=== PATIENT | male | born 1975 | race Caucasian/White ===

== ENCOUNTER 2025-09-11 19:19 | Emergency (ER) | payer OTHER, SELFPAY ==
--- OUTSIDE RECORDS SUMMARY | 2025-09-11 19:21 | XMS_ITS | Encounter Summary ---
Author Organization [facility] Address [address] [place] [address]. [place] [address] Care Team Providers Care Environmental Compliance Technician Name Role Phone No Ref-Primary, Physician Primary Care Provider Rafa Chester DO Unavailable [phone] Khushboo Austin APRN EXECUTIVE PRODUCER PROMOS Unavailable + Rafa Chester DO Unavailable [phone] Khushboo Austin APRN EXECUTIVE PRODUCER PROMOS Unavailable + Encounter Details Date Type Department Care Team (Late st Contact Info) Description 10/06/2023 MyC Medical Advice [facility] [id number] [place] [id number] Jessie Monae, DIRECTOR OF STRATEGIC COMMUNICATIONS Social History Tobacco Use Types Packs/Day Years Used Date Smoking Tobacco: Former Cigarettes Q uit: 11/30/2022 Smokeless Tobacco: Current Chew Alcohol Use Standard Drinks/Week Comments Yes 0 (1 standard drink = 0.6 oz pur e alcohol) a little it Social Connection and Isolation Panel [NHANES] A nswer Date Recorded In a typical week, how many times do you talk on the phone with family, friends, or neighbors? Three times a week 04/16/2022 How often do you get togethe r with friends or relatives? Once a week 04/16/2022 How often do you attend [facility] or jehovah's witness services? Never 04/16/2022 Do you belong to any clubs o r organizations such as latter-day groups, unions, fraternal or athletic groups, or school groups? No 04/16/2022 Attends Club or Organization Meetings Not on ha e 04/16/2022 Are you , , di vorced, , never , or living with a partner? 04/16/2022 AUDIT-C Answer Date Recorded Q1: How often do you have a drink containing alc ohol? Patient declined 04/16/2022 Q2: How many drinks containi ng alcohol do you have on a typical day when you are drinking? Patient declined 04/16/2022 Q3: How often do you have si x or more drinks on one occasion? Patient declined 04/16/2022 Overall Financial Resource Strain (CARDIA) Answe r Date Recorded How hard is it for you to pa y for the very basics like food, housing, medical care, and heating? Patient declined 04/16/2022 PHQ-2 Answer Date Recorded PHQ-2 Score 0 02/11/2023 [facility] - Occupational Stress Questionnaire Answer Date Recorded Do you feel stress - tense, restless, nervous, or anxious, or unable to sleep at night because your mind is troubled all the time - these days? Only a little 04/16/2022 Exercise Vital Sign Answer Date Recorde d On average, how many days pe r week do you engage in moderate to strenuous exercise (like a brisk walk)? 7 days 04/16/2022 On average, how many minutes do you engage in exercise at this level? 150+ min 04/16/2022 Hunger Vital Sign Answer Date Recorded Within the past 12 months, y ou worried that your food would run out before you got the money to buy more. Never true 04/16/20 Within the past 12 months, t he food you bought just didn't last and you didn't have money to get more. Never true 04/16/2022 PRAPARE - Transportation Answer Date Re corded In the past 12 months, has l ack of transportation kept you from medical appointments or from getting medications? No 03/24 In the past 12 months, has l ack of transportation kept you from meetings, work, or from getting things needed for daily living? No 04/16/2022 Housing Stability Vital Sign Answer Denis e Recorded In the last 12 months, was t here a time when you were not able to pay the mortgage or rent on time? Patient refused 04/16/20 In the last 12 months, how many places have you lived? 1 04/16/2022 In the last 12 months, was t here a time when you did not have a steady place to sleep or slept in a half-way (including now)? No 04/16/2022 Adolescent Education Answer Date Record ed Getting School Help Needed Not on file 08/23 Sex and Gender Information Value Date Recorded Sex Assigned at Male 01/19/2023 10:27 AM UNDERGROUND ROOF BOLTER Legal Sex Male 3:27 AM UNDERGROUND ROOF BOLTER Gender Identity Male 01/19/2023 10:27 AM UNDERGROUND ROOF BOLTER Sexual Orientation Straight 01/19/2023 10 :27 AM UNDERGROUND ROOF BOLTER documented as of this encounter Plan of Treatment Not on file documented as of this encounter Visit Diagnoses Not on filedocumented in this encounter Care Teams Environmental Compliance Technician Relationship Specialty Start Date End Date No Ref-Primary, Physician PCP - General 04/16/22 [place] [id number] [place] [address] Assigned PCP 04/26/22 10/23/23 Khushboo Austin APRN EXECUTIVE PRODUCER PROMOS [address] [place] [id number] Assigned PCP 10/24/23 08/14/24 [place] [address] [place] [address] Assigned PCP 08/15/24 05/14/25 Khushboo Austin APRN EXECUTIVE PRODUCER PROMOS [address] [place] [id number] Assigned PCP 05/15/25 documented as of this encounter
--- OUTSIDE RECORDS SUMMARY | 2025-09-11 19:21 | XMS_ITS | Clinical Summary ---
Author Organization [facility] Address [address] [place] [address]. [place] [address] Care Team Providers Care Advanced Practice Nurse Psychotherapist Name Role Phone No Ref-Primary, Physician Primary Care Provider Khushboo Austin INSTRUMENT REPAIR SUPERVISOR CROP AND SOIL SCIENTIST Unavailable + Allergies No known active allergies Medications VITAMIN C 500 MG PO TABS 1 TABLET DAILY Active ADVIL 200 MG PO CAPS 1 CAPSULE EVERY 4 TO 6 HOURS NEEDED Active MULTI-VITAMIN PO None Entered Active CALCIUM 500 PO None Entered Ac tive glucosamine 500 MG CAPS Active Active Problems Problem Noted Date Diagnosed Date CARDIOVASCULAR SCREENING; LDL GOAL LESS THAN 160 09/22/2010 Resolved Problems Problem Noted Date Diagnosed Date Resolved Date MENTAL HEALTH 01/15/2015 02/11/2023 Immunizations Immunization Administration Dates Next Due TDAP Vaccine (Adacel) 05/08/2009 Family History Medical History Relation Comments Dementia Father Cancer Mother ovarian cancer Relation Status Comments Father Alive Maternal Grandfather Maternal Grandmother Mother Alive Paternal Grandfather Paternal Grandmother Social History Tobacco Use Types Packs/Day Years Used Date Smoking Tobacco: Former Cigarettes Q uit: 11/30/2022 Smokeless Tobacco: Current Chew Tobacco Cessation:Ready to Q uit: Not Asked; Counseling Given: Not Answered Alcohol Use Standard Drinks/Week Comments Yes 0 [...] week 04/16/2022 How often do you attend chur or voodoo services? Never 04/16/2022 Do you belong to any clubs o r organizations such as mandaen groups, unions, fraternal or athletic groups, or [...] Answer Date Recorded PHQ-2 Score 0 02/11/2023 [facility] - Occupational Stress Questionnaire Answer Date Recorded [...] money to buy more. Never true 04/16/20 22 Within the past 12 months, t he [...] place to sleep or slept in a correction (including now)? No 04/16/2022 Adolescent Education Answer Date Record ed Getting School Help Needed Not on file 08/23 Sex and Gender Information Value Date Recorded Sex Assigned at Male 01/19/2023 10:27 AM METAL CONTROL WORKER Legal Sex Male 3:27 AM METAL CONTROL WORKER Gender Identity Male 01/19/2023 10:27 AM METAL CONTROL WORKER Sexual Orientation Straight 01/19/2023 10 :27 AM METAL CONTROL WORKER Last Filed Vital Signs Vital Sign Reading Time Taken Comments Blood Pressure 124/70 02/11/2023 11:19 AM CDT Pulse 52 02/11/2023 11:05 AM CDT Temperature 36.6 C (97.8 F) 02/11/2023 11:05 AM CDT Respiratory Rate 16 02/11/2023 11:05 AM CDT Oxygen Saturation 97% 02/11/2023 11:05 AM CDT Inhaled Oxygen Concentration - - Weight 82.6 kg (182 lb) 02/11/2023 11:05 AM CDT Height 177.2 cm (5' 9.75) 02/11/2023 11:05 AM C DT Body Mass Index 26.3 02/11/2023 11:05 AM CDT Plan of Treatment Health Maintenance Due Date Last Done Comments CT COLONOGRAPHY 1977 FIT 1977 FLEX SIG 1977 sDNA (Cologuard) 1977 COLONOSCOPY 1987 COLORECTAL CANCER SCREENING 1987 HEPATITIS B VACCINE (1 of 3 - 19+ 3-dose series) 1996 ANNUAL REVIEW OF HM ORDERS 04/16/2023 04/16/2022 YEARLY PREVENTIVE VISIT 04/16/2023 04/16/2022 PHQ-2 (once per calendar year) 2024 02/11/2023, 04/16/2022 INFLUENZA VACCINE (#1) 2025 DIABETES SCREENING 02/11/2026 02/11/2023, 04/16/2022, 01/14/2015 ZOSTER VACCINE (1 of 2) 2027 LIPID 04/16/2027 04/16/2022 ADVANCE CARE PLANNING 04/21/2027 04/21/2022 DTAP/TDAP/TD VACCINE Discontinued 05/08/2009 COVID-19 VACCINE Discontinued HEPATITIS C SCREENING Discontinued HIV SCREENING Discontinued HPV VACCINE (No Doses Required) Completed MENINGITIS VACCINE Aged Out No longer eligible based on patient's age to complete this topic PNEUMOCOCCAL VACCINE: PEDIATRICS (0 to 5 YEARS) AND AT-RISK PATIENTS (6 to 49 YEARS) Discontinued Procedures Procedure Name Priority Date/Time Associated Diagnosis Comments COMPREHENSIVE METABOLIC PANEL Routine 02/11/2023 12:07 PM CDT Rheumatoid arthritis involving multiple sites with positive rheumatoid factor (H) Multiple joint pain LIPID REFLEX TO DIRECT LDL PANEL Routine 04/16/2022 5:30 PM CDT Screening for hyperlipidemia from Last 3 Months or Most Recently Relevant to Health Maintenance Results * (ABNORMAL) Comprehensive metabolic panel (BMP + Alb, Alk Phos, ALT, AST, Total. Bili, TP) (02/11/2023 12:07 PM CDT) Sodium 140 136 - 145 mmol/L 02/11/2023 8:52 PM CDT [facility] Potassium 4.8 3.4 - 5.3 mmol/L 02/11/2023 8:52 PM CDT [facility] Chloride 100 98 - 107 mmol/L 02/11/2023 8:52 PM CDT [facility] Carbon Dioxide (CO2) 24 22 - 29 mmol/L 02/11/2023 8:52 PM CDT [facility] Anion Gap 16(H) 7 - 15 mmol/L 02/11/2023 8:52 PM CDT [facility] Urea Nitrogen 20.8(H) 6.0 - 20.0 mg/dL 02/11/2023 8:52 PM CDT [facility] Creatinine 0.89 0.67 - 1.17 mg/dL 02/11/2023 8:52 PM CDT [facility] Calcium 10.0 8.6 - 10.0 mg/dL 02/11/2023 8:52 PM CDT [facility] Glucose 92 70 - 99 mg/dL 02/11/2023 8:52 PM CDT [facility] Alkaline Phosphatase 113 40 - 129 U/L 02/11/2023 8:52 PM CDT [facility] AST 50 10 - 50 U/L 02/11/2023 8:52 PM CDT [facility] ALT 71(H) 10 - 50 U/L 02/11/2023 8:52 PM CDT [facility] Protein Total 7.9 6.4 - 8.3 g/dL 02/11/2023 8:52 PM CDT [facility] Albumin 4.9 3.5 - 5.2 g/dL 02/11/2023 8:52 PM CDT [facility] Bilirubin Total 0.5 <=1.2 mg/dL 02/11/2023 8:52 PM CDT [facility] GFR Estimate >90 >60 mL/min/1.7 3m2 02/11/2023 8:52 PM CDT [facility] Comment:eGFR calculated 2020 CKD-EPI equation. Blood STRUCTURE OF RIGHT UPPER LIMB / Unknown Venipuncture / Unknown 02/11/2023 12:07 PM CDT 02/11/2023 12:08 PM CDT Khushboo Austin APRN CROP AND SOIL SCIENTIST LAB - BLOOD ORDERA BLES Final Result [facility] [address] [facility], [address] [place] [address], [facility] [phone] * (ABNORMAL) Lipid panel reflex to direct LDL Non-fasting (04/16/2022 5:30 PM CDT) Cholesterol 247(H) <200 mg/dL 04/17/2022 3:41 PM CDT [facility] Triglycerides 202(H) <150 mg/dL 04/17/2022 3:41 PM CDT [facility] Direct Measure HDL 64 >=40 mg/dL 04/17/2022 3:41 PM CDT [facility] LDL Cholesterol Calculated 143(H) <=100 mg/dL 04/17/2022 3:41 PM CDT [facility] Non HDL Cholesterol 183(H) <130 mg/dL 04/17/2022 3:41 PM CDT [facility] Patient Fasting > 8hrs? Unknown 04/17/2022 3:41 PM CDT [facility] Blood VENOUS BLOOD / Unknown Venipuncture / Unknown 04/16/2022 5:30 PM CDT 04/16/2022 5:30 PM CDT Narrative [facility] - 04/17/2022 3:41 PM CDT Cholesterol Desirable: <200 mg/dL Triglycerides Normal: Less than 150 mg/dL Borderline High: 150-199 mg/dL High: 200-499 mg/dL Very High: Greater than or equal to 500 mg/dL Direct Measure HDL Female: Greater than or equal to 50 mg/dL Male: Greater than or equal to 40 mg/dL LDL Cholesterol Desirable: <100mg/dL Above Desirable: 100-129 mg/dL Borderline High: 130-159 mg/dL High: 160-189 mg/dL Very High: >= 190 mg/dL Non HDL Cholesterol Desirable: 130 mg/dL Above Desirable: 130-159 mg/dL Borderline High: 160-189 mg/dL High: 190-219 mg/dL Very High: Greater than or equal to 220 mg/dL Rafa Chester DO LAB - BLOOD ORDERABLES Final Re sult [facility] [address] Lab (no room number, 1st floor of clinic) [place] [address], [facility] [phone] from Last 3 Months or Most Recently Relevant to Health Maintenance Insurance [place] [facility] IN[employer]ILY [employer]ANS WITH [employer] Advance Directives For more information, please contact: [phone] * Full Code (Latest Code Status on File) Date Activated Date Inactivated Comments 01/15/2015 5:15 PM 01/16/2015 1:29 PM Care Teams Advanced Practice Nurse Psychotherapist Relationship Specialty Start Date End Date No Ref-Primary, Physician PCP - General 04/16/22 Khushboo Austin APRN CROP AND SOIL SCIENTIST [address] [place] [id number] Assigned PCP 05/15/25
[2025-09-11 19:28] VITALS: BP 170/110; PULSE 59; RESP 16; TEMP 36.3; O2SAT 99; BMI 23.7
--- NOTE | 2025-09-11 19:45 | CRLHL7_ITS ---
For Patients: As a result of the Cures Act, medical imaging exams and procedure reports are released immediately into your electronic medical record. You may view this report before your referring provider. If you have questions, please contact your health care provider. Indication: Foreign body check after multiple cat bite Technique: Left hand 3 views. Comparison: None. Findings: Bones: Alignment is normal. No fractures or bone lesions. Joint spaces: Unremarkable. Soft tissues: No significant soft tissue swelling or radiopaque foreign body. Impression: No acute fracture or radiopaque foreign body. Dictated by Sergey Smith MD @ 09/11/2025 8:11:52 PM (Electronically Signed)
--- NOTE | 2025-09-11 19:45 | ED_ITS ---
HPI - Wound/Laceration General Date Seen: 09/11/25 Chief Complaint: Laceration/Wound Stated Complaint: Cat scratch L arm Time Seen by Provider: 09/11/25 19:45 Source: patient, family and RN notes reviewed Mode of arrival: ambulatory Limitations: no limitations History of Present Illness HPI narrative: Duane is a very pleasant 50-year-old gentleman unknown tetanus who tonight had a wild cat scratch him and bite him on both hands. The him notes that the cat has been around before tried to capture him and this happen. He sustained lacerations to both hands from scratches it is fairly certain that the puncture wounds on the left hand are from a bite. The cat did run off. He does expect it will be back. He is able to move his wrist and fingers. Related Data Home Medications ?Medication ?Instructions ?Recorded ?Confirmed No Known Home Medications 09/11/2508/24 Allergies Allergy/AdvReac Type Severity Reaction Status Date / Time No Known Drug Allergies Allergy Verified 09/11/25 20:12 Review of Systems Status of ROS: Reports: 6 or more systems reviewed and unremarkable except as noted in History and below [facility] Social History Smoking Status: Former smoker Do you use any of these nicotine containing products: Other Second hand tobacco smoke exposure: No How often do you have a drink containing alcohol: monthly or less How many standard drinks containing alcohol do you have on a typical day: 1 or 2 How often do you have six or more drinks on one occasion: Never AUDIT-C Alcohol total score: 1 Non-prescribed substance use: denies use service: No Exam Narrative: Exam Narrative: Numerous scratches and puncture wounds on both hands and wrists. Left hand volar surface puncture wound over the right lateral forearm just above the radial artery pulse point. Mild surrounding erythema. No hematoma. 2 cm laceration at the base of the right hand medial aspect. This is measuring approximately 2 cm. Compromising epidermis and dermis. On his forearm he has a 7 mm laceration through the epidermis dermis but not compromising subcutaneous tissue on the distal forearm. Both of the superficial as well. On the dorsal surface he has a 7 mm laceration across the 3rd 4th and 5th MCPs. Across the 4th MCP it does open up into some subcutaneous tissue. For probably 1 cm. Wound closes nicely when hand is not flex. Right hand there is a 3 mm laceration across the lateral aspect of the 2nd phalanx. There is a 3 cm laceration across the dorsal phalanx On the volar surface there is a 4 cm laceration across the distal forearm. also has a additional lacerations medial to that. One measuring 7 mm and the other 3.5 mm. No respiratory distress. Const: Vital Signs, click to edit/add: Vital Signs - 24 hr 09/11/25 19:28 Temperature 97.3 F L Pulse Rate [Right Pulse Oximeter] 59 L Respiratory Rate 16 Blood Pressure [Le ft Upper Arm] 170/110 H Pulse Oximetry 99 Oxygen Delivery Me thod Room Air Documenting provider has reviewed patient's vital signs: yes Course Course ED Course: Will check on patient's tetanus status. Will speak to state epidemiology regarding need for rabies vaccination Plan on irrigation wounds and not just soaking. Will plan on bilateral hand and wrist x-ray to ensure there is no evidence of retained foreign body i.e. tooth. Vital Signs Vital signs: Initial Vital Signs Temperature 97.3 F L 09/11/25 19:28 Temperature Source Temporal Artery Scan 09/11/25 19:28 Pulse Rate 59 L 09/11/25 19:28 Respiratory Rate 16 09/11/25 19:28 Blood Pressure 170/110 H 09/11/25 19:28 Blood Pressure Mean 130 H 09/11/25 19:28 Blood Pressure Position Sitting 09/11/25 19:28 Pulse Oximetry 99 09/11/25 19:28 Oxygen Delivery Method Room Air 09/11/25 19:28 Vital Signs Temperature 97.3 F L 09/11/25 19:28 Pulse Rate 59 L 09/11/25 19:28 Respiratory Rate 16 09/11/25 19:28 Blood Pressure 170/110 H 09/11/25 19:28 Pulse Oximetry 99 09/11/25 19:28 Oxygen Delivery Method Room Air 09/11/25 19:28 Temperature 97.3 F L 09/11/25 19:28 Pulse Rate 59 L 09/11/25 19:28 Respiratory Rate 16 09/11/25 19:28 Blood Pressure 170/110 H 09/11/25 19:28 Pulse Oximetry 99 09/11/25 19:28 Oxygen Delivery Method Room Air 09/11/25 19:28 MDM - Wound/Laceration MDM Narrative Medical decision making narrative: 1. Cat bite and scratches-patient will be placed on Augmentin 875 p.o. b.i.d. for 7 days. Did explain that cat bites in particular have a very high incidence of infection. Not only soaked wounds but also irrigated this evening. No evidence of retained foreign body on x-rays. 2. Tetanus -last tetanus 2008. We will update that today with Adacel. 3. Rabies concern-according to manager commercial real estate patient has up to [address] and quarantine and observe for [address] is doing well after 10 days and seems healthy he does not need to have rabies vaccinations. If however during that time CT appears to be sickly will need to return for initiation of IgG and vaccination and consult with [facility] regarding their thoughts on the CT future and treatment of the patient. Unable to capture the cat will need to return for IgG as well as vaccinations. 4. Disposition-home at this time. Steri-Strips placed across the left hand at the 4th MCP. Other laceration superficial not requiring sutures or Steri- Strips. Would not want to glue these wounds with high incidence of possible infection. Patient instructed to return for redness, purulent drainage, fever, worsening symptoms and as needed. Imaging Data Right hand x-ray: Attestation: I have reviewed the pertinent imaging results. My impression: I do not note any foreign body Radiologist's impression: Bones: Alignment is normal. No fractures or bone lesions. Joint spaces: Unremarkable. Soft tissues: No radiopaque foreign body. Soft tissue swelling with subcutaneous air at the ulnar base of the 2nd and 3rd digits. Impression: 1. No acute fracture. 2. No radiopaque foreign body. Soft tissue swelling with subcutaneous air at the ulnar base of the 2nd and 3rd digits. Left hand x-ray: Attestation: I have reviewed the pertinent imaging results. My impression: No foreign body note Radiologist's impression: Bones: Alignment is normal. No fractures or bone lesions. Joint spaces: Unremarkable. Soft tissues: No significant soft tissue swelling or radiopaque foreign body. Impression: No acute fracture or radiopaque foreign body. Discharge Plan Discharge Clinical Impression: Cat bite, Cat scratch, Tetanus, Laceration, Puncture wound Patient Disposition: Home, Self-Care Condition: Improved Additional Instructions: The manager commercial real estate notes that you have up to 5 days to capture this CaT. If you do not you will need to initiate rabies vaccinations. If you are able to capture this CaT you will need to quarantine for 10 days. It is acting normally after 10 days I would suggest taking it to the animal correction for adoption or euthanasia. However, the CT is becoming sick, you will need to return for rabies vaccinations. We can then determine what this state wants to do with the feline if it is sick. We will start you on Augmentin tonight to prevent any infection. Seek medical attention if he develops red streaks up your arm start experiencing fever or chills. Try to keep the wounds clean. Prescriptions: No Action No Known Home Medications Follow Up/Referrals: Provider,Not a Local [Primary Care Provider, Family Practice] Stand Alone Forms: [employer] Info Instructions
--- NOTE | 2025-09-11 19:45 | CRLHL7_ITS ---
For Patients: As a result of the Cures Act, medical imaging exams and procedure reports are released immediately into your electronic medical record. You may view this report before your referring provider. If you have questions, please contact your health care provider. Indication: Foreign body check after multiple cat bite Technique: Right hand 3 views. Comparison: None. Findings: Bones: Alignment is normal. No fractures or bone lesions. Joint spaces: Unremarkable. Soft tissues: No radiopaque foreign body. Soft tissue swelling with subcutaneous air at the ulnar base of the 2nd and 3rd digits. Impression: 1. No acute fracture. 2. No radiopaque foreign body. Soft tissue swelling with subcutaneous air at the ulnar base of the 2nd and 3rd digits. Dictated by Sergey Smith MD @ 09/11/2025 8:07:37 PM (Electronically Signed)
[2025-09-11] MEDS: TETANUS/DIPHTH/PERTUSSIS 0.5 ML SYRINGE IM (21:07)
[2025-09-11 21:14] VITALS: BP 130/68; PULSE 60; RESP 16; TEMP 36.7
== END 2025-09-11 21:15 | disposition home or self-care (01) ==
PROVIDERS: Emergency Provider Family Medicine
DX: S61.432A Puncture wound without foreign body of left hand, initial encounter (principal); S61.411A Laceration without foreign body of right hand, initial encounter; S51.811A Laceration without foreign body of right forearm, initial encounter; W55.01XA Bitten by cat, initial encounter; Z23 Encounter for immunization
CPT/HCPCS: 73120; 90471; 90715; 96372; 99284; J1885